=== PATIENT | female | born 1970 ===

== ENCOUNTER 2023-09-02 06:09 | Day surgery (SDC) | payer OTHER ==
[2023-08-30 08:13] LABS: HEMATOCRIT 38.1 % (36.0-45.00); HEMOGLOBIN 12.8 g/dL (12.0-15.00); MEAN CELL VOLUME 86.3 fL (80.00-100.00); MEAN CORPUSCULAR HGB CONC 33.6 g/dl (32.0-36.0); PLATELET COUNT 333 K/uL (150-450); RED BLOOD COUNT 4.41 M/uL (4.00-6.00); RED CELL DISTRIBUTION WIDTH 14.9 % (11.5-14.5)
[2023-08-30 08:25] LABS: URINE APPEARANCE Clear; URINE BILIRRUBIN Negative (NEGATIVE); URINE BLOOD Small; URINE COLOR Yellow; URINE GLUCOSE Negative (NEGATIVE); URINE LEUKOCYTE Negative; URINE NITRATE Negative; URINE PROTEIN Trace (NEGATIVE)
[2023-08-30 08:28] LABS: URINE BACTERIA 181.4 uL (0.0-1933); URINE EPITHELIAL CELLS 50.7 uL (0.0-38.8); URINE RBC 66.1 uL (0.0-20.8); URINE WBC 33.8 uL (0.0-23.2)
[2023-08-30 08:29] LABS: CALCIUM 8.3 mg/dL (8.5-10.1); CREATININE SERUM 0.6 mg/dL (0.55-1.02); GFR 105.39; POTASSIUM 4.18 mEq/L (3.5-5.1); T4 TOTAL 5.92 UG/DL (4.8-13.9); TSH 0.864 uIU/mL (0.358-3.74)
[2023-08-30 08:41] LABS: INR 0.98; PARTIAL THROMBOPLASTIN TIME 30.5 SECONDS (22.0-34.0); PROTHROMBIN TIME 10.3 SECONDS (9.0-11.5)
[~2023-09-02] VITALS: Ht 157.5 cm; Wt 72.6 kg
[~2023-09-02 06:09] MED LIST: ELAVIL; FLEXERIL PO; GABAPENTIN800 M1 PO; LIPITOR40 M1 PO; TRAMAD PO; TYLENOL ARTHRI650 MG PO
== END 2023-09-02 14:40 | disposition home or self-care (01) ==
LOC: CIR.AMB 06:09
PROVIDERS: ATTEND Orthopaedic Surgery
DX: M75.122 Complete rotator cuff tear or rupture of left shoulder, not specified as traumatic (principal); M75.22 Bicipital tendinitis, left shoulder; M19.012 Primary osteoarthritis, left shoulder; Z20.822 Contact with and (suspected) exposure to COVID-19; I10 Essential (primary) hypertension; Z88.0 Allergy status to penicillin